=== PATIENT | male | born 1955 | race Native Hawaiian/Other Pacific Islander ===

== ENCOUNTER 2017-01-29 06:33 | Outpatient (CLI) | payer OTHER | END 2017-01-29 06:39 | disposition short-term general hospital (02) | LOC: AMB 06:33 | DX: R10.84 Generalized abdominal pain (principal); R00.0 Tachycardia, unspecified; Z74.3 Need for continuous supervision | CPT/HCPCS: A0425; A0427 ==

== ENCOUNTER 2017-01-29 06:47 | Emergency (ER) | payer OTHER ==
[~2017-01-29] VITALS: Ht 167.6 cm; Wt 72.6 kg
[2017-01-29 06:49] VITALS: TEMP 97.9
[2017-01-29 07:05] LABS: PLATELET COUNT 262 K/uL (142-355)
[2017-01-29 07:55] LABS: POTASSIUM 4.7 mmol/L (3.6-5.2)
[2017-01-29 12:28] VITALS: BP 133/94
== END 2017-01-29 12:41 | disposition short-term general hospital (02) ==
LOC: ED 06:47
PROC: 0D9670Z Drainage of Stomach with Drainage Device, Via Natural or Artificial Opening (ICD-10-PCS; principal; 2017-01-29)
DX: K56.69 Other intestinal obstruction (principal); E87.1 Hypo-osmolality and hyponatremia; R10.84 Generalized abdominal pain; R00.0 Tachycardia, unspecified
CPT/HCPCS: 36415; 36600; 43754; 80053; 82805; 83605; 83690; 85027; 93005; 96361; 96374; 96375; 99285; J1170; J1885; J2060; J2405

== ENCOUNTER 2017-02-06 15:01 | Inpatient (IN) | payer OTHER ==
[~2017-02-06] VITALS: Ht 167.6 cm; Wt 75.4 kg
[2017-02-06 15:08] VITALS: BP 170/100; TEMP 98.7
[2017-02-06 19:04] LABS: PLATELET COUNT 277 K/uL (142-355)
[2017-02-06 20:12] LABS: POTASSIUM 4.6 mmol/L (3.6-5.2); SODIUM 132 mmol/L (136-145)
[2017-02-06 23:30] VITALS: BP 171/95; TEMP 98.3; Ht 167.6 cm; Wt 75.4 kg
[2017-02-07 04:49] LABS: PLATELET COUNT 213 K/uL (142-355)
[2017-02-07 04:58] LABS: POTASSIUM 3.5 mmol/L (3.6-5.2); SODIUM 135 mmol/L (136-145)
[2017-02-07 05:04] VITALS: BP 141/82; TEMP 97.8
[2017-02-07 08:00] VITALS: BP 126/77; TEMP 98.2
[2017-02-07 12:00] VITALS: BP 118/82; TEMP 98
[2017-02-07 16:00] VITALS: BP 131/81; TEMP 98.1
[2017-02-07 19:55] VITALS: BP 135/87; TEMP 97.8
[2017-02-08 00:39] VITALS: BP 140/85; TEMP 98.3
[2017-02-08 04:58] LABS: PLATELET COUNT 223 K/uL (142-355)
[2017-02-08 05:04] LABS: POTASSIUM 3.3 mmol/L (3.6-5.2); SODIUM 138 mmol/L (136-145)
[2017-02-08 05:25] VITALS: BP 166/97; TEMP 97.5
[2017-02-08 08:16] VITALS: BP 170/95; TEMP 98
== END 2017-02-08 15:34 | disposition home or self-care (01) | DRG 389 ==
LOC: ED 15:01 → MED/SURG 22:41
PROVIDERS: Internal Medicine; ADMIT Specialist
DX: K56.69 Other intestinal obstruction (principal); K57.32 Diverticulitis of large intestine without perforation or abscess without bleeding; J44.9 Chronic obstructive pulmonary disease, unspecified; D72.828 Other elevated white blood cell count
CPT/HCPCS: 36415; 80048; 80053; 81000; 82150; 83605; 83690; 83735; 85027; 94640; 94664; 96360; 96361; 99285; J1644; J1885; J2175; J2550; Q9963

== ENCOUNTER 2022-07-12 19:40 | Emergency (ER) | payer OTHER ==
[~2022-07-12] VITALS: Ht 167.6 cm; Wt 89.8 kg
[2022-07-12 20:06] LABS: PLATELET COUNT 279 K/uL (142-355)
[2022-07-12 20:34] LABS: POTASSIUM 4.1 mmol/L (3.6-5.2)
[2022-07-12 20:45] LABS: PARTIAL THROMBOPLASTIN TIME 28.8 SECONDS (24.5-33.6)
[2022-07-13 01:30] VITALS: BP 114/80; TEMP 98.5
== END 2022-07-13 01:30 | disposition short-term general hospital (02) ==
LOC: ED 19:40
PROVIDERS: Emergency Medicine
DX: I21.4 Non-ST elevation (NSTEMI) myocardial infarction (principal); I50.9 Heart failure, unspecified; J44.1 Chronic obstructive pulmonary disease with (acute) exacerbation; F17.210 Nicotine dependence, cigarettes, uncomplicated
CPT/HCPCS: 36415; 36600; 80053; 82805; 83880; 84484; 85027; 85610; 85730; 87040; 93005; 94664; 96365; 96366; 96375; 99284; J1642; J1644; J1940; J1956; J2270; J2405